=== PATIENT | female | born 1945 | race Caucasian/White ===

== ENCOUNTER 2025-01-31 11:11 | Inpatient (IN) | payer MEDICARE, OTHER ==
[~2025-01-31] VITALS: Ht 152.4 cm; Wt 73.0 kg
[~2025-01-31 11:11] MED LIST: ASCO500C6 PO; ASPI-1169 PO; ATOR40TA PO; BISA10SU61 RC; CARV25TA2 PO; CLON0.1T PO; DIPH25TA62 PO; FLUT16SP16 BNOSTRILS; GABA-532 PO; LITH300T3 PO; LOSA100T31 PO; MULT-647 PO; NA P133E RC
[2025-01-31] MEDS ORDERED: RISP1TAB7 PO (11:30)
[2025-01-31] MEDS ORDERED: LOSA50TA39 PO (11:30)
[2025-01-31] MEDS ORDERED: CLON0.5T4 PO (11:30)
[2025-01-31 11:57] LABS: BASOPHILS # (AUTO) 0.1 K/UL (0.0-0.2); BASOPHILS % (AUTO) 0.6 % (0.0-2.0); EOSINOPHILS # (AUTO) 0.1 K/uL (0.0-0.7); EOSINOPHILS % (AUTO) 1.1 % (0.0-7.0); HEMATOCRIT 41.2 % (31.2-41.9); HEMOGLOBIN 13.4 g/dL (10.9-14.3); LYMPHOCYTES # (AUTO) 1.2 K/uL (0.8-4.8); LYMPHOCYTES % (AUTO) 12.8 % (20.5-51.5); MEAN CORPUSCULAR HEMOGLOBIN 31.1 uug (24.7-32.8); MEAN CORPUSCULAR HGB CONC 32 g/dL (32.3-35.6); MONOCYTES # (AUTO) 0.7 K/uL (0.1-1.30); MONOCYTES % (AUTO) 7.5 % (0.0-11.0); NEUTROPHILS # (AUTO) 7.1 K/uL (1.8-8.9); PLATELET COUNT (AUTO) 167 K/uL (179-408); RED CELL DISTRIBUTION WIDTH 13.7 % (12.3-17.7); WHITE BLOOD COUNT (AUTO) 9.1 K/uL (3.8-11.8)
[2025-01-31 12:08] LABS: *BILIRUBIN,URIN NEGATIVE (NEGATIVE); *BLOOD, URINE NEGATIVE (NEGATIVE); *CLARITY,URINE CLEAR (CLEAR); *COLOR,URINE YELLOW (YELLOW); *KETONES,URINE NEGATIVE (NEGATIVE); *PROTEIN,URINE NEGATIVE (NEGATIVE); *UROBILINOGEN,URINE 0.2 E.U./dl (NORMAL); LEUKOCYTE ESTERASE ,URINE 1+ (NEGATIVE); NITRITE, URINE NEGATIVE (NEGATIVE); UGLUCOSE NEGATIVE (NEGATIVE)
[2025-01-31 12:10] LABS: CALCIUM 8.9 mg/dL (8.5-10.1); CARBON DIOXIDE 21 mmol/L (21-32); CHLORIDE 108 mmol/L (98-107); CREATININE 1.2 mg/dL (0.6-1.3); GLUCOSE 104 mg/dL (74-106); POTASSIUM 4.1 mmol/L (3.5-5.1); SODIUM SERUM 142 mmol/L (136-145); UREA NITROGEN, BLOOD 13 mg/dL (7-18)
[2025-01-31 12:11] LABS: AMMONIA 15 umol/L (11-32)
[2025-01-31 12:14] LABS: DIFFERENTIAL COMMENT 1
[2025-01-31 12:16] LABS: ALANINE AMINOTRANSFERASE 21 U/L (14-59); ALBUMIN 3.6 g/dL (3.4-5.0); ALKALINE PHOSPHATASE 67 U/L (50-136); ASPARTATE AMINOTRANSFERASE 11 U/L (15-37); BILIRUBIN,DIRECT 0.3 mg/dL (0.0-0.2); BILIRUBIN,TOTAL 0.7 mg/dL (0.2-1.0); TOTAL PROTEIN, SERUM 6.1 g/dL (6.4-8.2)
[2025-01-31 12:46] LABS: BACTERIA,URINE FEW /HPF (NONE SEEN); SQUAMOUS EPITHELIAL CELL,UR FEW /HPF (NONE SEEN); WBC,URINE 20-50 /HPF (0-3)
[2025-01-31] MEDS ORDERED: SULFAMETH/TRIMETH 800/160 MG TABLET ONE (13:09)
[2025-01-31] MEDS: SULFAMETH/TRIMETH 800/160 MG TABLET PO ONE (13:21)
[2025-01-31 13:51] LABS: THYROID STIMULATING HORMONE 3.011 mIU/mL (0.358-3.740)
[2025-01-31] MEDS: IV NS 1000 ML 1,000 ML IV ONE (14:00)
[2025-01-31 14:05] LABS: MAGNESIUM 2.3 mg/dL (1.8-2.4)
[2025-01-31] MEDS ORDERED: ASPI81TA31 PO (16:44)
[2025-01-31] MEDS ORDERED: ATOR20TA PO (16:45)
[2025-01-31] MEDS ORDERED: VITA-287 PO (16:47)
[2025-01-31] MEDS ORDERED: ALEN70TA80 PO (16:47)
[2025-01-31] MEDS ORDERED: VITAMIN B12 LIQUID PO (16:50)
[2025-01-31] MEDS ORDERED: MULT-1157 PO (16:50)
[2025-01-31] MEDS ORDERED: ERGO400C PO (16:51)
[2025-01-31] MEDS ORDERED: ZINC220T3 PO (16:51)
[2025-01-31] MEDS ORDERED: MAGN400C PO (16:51)
[2025-01-31] MEDS ORDERED: ACETAMINOPHEN 325 MG TABLET PO PRN (17:15)
[2025-01-31] MEDS ORDERED: ENALAPRILAT DIHYDRATE 1.25 MG/1 ML VIAL IV PRN (17:15)
[2025-01-31] MEDS ORDERED: ALBUTEROL SULFATE 2.5 MG/ 0.5 ML NEBU NEB PRN (17:15)
[2025-01-31] MEDS: risperiDONE 1 MG TABLET PO SCH (17:22)
[2025-01-31] MEDS: CLONAZEPAM 0.5 MG TABLET PO PRN (18:10)
[2025-01-31] MEDS: CEFTRIAXONE 1 G in IV DEXTROSE 5% 50 ML IV SCH (18:15)
[2025-01-31 19:45] VITALS: BP 125/54; TEMP 97.6; O2SAT 96
[2025-01-31] MEDS: ATORVASTATIN 20 MG TABLET PO SCH (20:11)
[2025-01-31] MEDS: CARVEDILOL 12.5 MG TABLET PO SCH (20:12)
[2025-02-01] VITALS (9 sets, daily range): BP systolic 123–157; BP diastolic 57–74; TEMP 97.3–98.9; O2SAT 93–98
[2025-02-01] MEDS: PANTOPRAZOLE SODIUM 40 MG TABLET.DR PO SCH (06:21)
[2025-02-01 06:51] LABS: BASOPHILS % (AUTO) 0.5 % (0.0-2.0); EOSINOPHILS # (AUTO) 0.3 K/uL (0.0-0.7); EOSINOPHILS % (AUTO) 3.3 % (0.0-7.0); HEMATOCRIT 40.3 % (31.2-41.9); LYMPHOCYTES # (AUTO) 1.2 K/uL (0.8-4.8); LYMPHOCYTES % (AUTO) 14.3 % (20.5-51.5); MEAN CORPUSCULAR HEMOGLOBIN 31.3 uug (24.7-32.8); MEAN CORPUSCULAR HGB CONC 32 g/dL (32.3-35.6); MEAN CORPUSCULAR VOLUME 96.5 fL (75.5-95.3); MONOCYTES # (AUTO) 0.7 K/uL (0.1-1.30); MONOCYTES % (AUTO) 7.5 % (0.0-11.0); NEUTROPHILS # (AUTO) 6.5 K/uL (1.8-8.9); NEUTROPHILS % (AUTO) 74.4 % (38.5-71.5); PLATELET COUNT (AUTO) 154 K/uL (179-408); RED BLOOD CELL COUNT(AUTO) 4.17 MIL/uL (3.63-4.92); RED CELL DISTRIBUTION WIDTH 14.2 % (12.3-17.7); WHITE BLOOD COUNT (AUTO) 8.7 K/uL (3.8-11.8)
[2025-02-01 06:55] LABS: ALANINE AMINOTRANSFERASE 22 U/L (14-59); ALBUMIN 3.3 g/dL (3.4-5.0); ALKALINE PHOSPHATASE 68 U/L (50-136); ASPARTATE AMINOTRANSFERASE 8 U/L (15-37); BILIRUBIN,TOTAL 0.9 mg/dL (0.2-1.0); CARBON DIOXIDE 23 mmol/L (21-32); CHLORIDE 111 mmol/L (98-107); CHOLESTEROL 99 mg/dL (<200); CREATININE 1.2 mg/dL (0.6-1.3); GLUCOSE 115 mg/dL (74-106); HDL CHOLESTEROL 41 mg/dL (40-60); MAGNESIUM 2.2 mg/dL (1.8-2.4); PHOSPHOROUS 3.3 mg/dL (2.5-4.9); POTASSIUM 4.3 mmol/L (3.5-5.1); SODIUM SERUM 143 mmol/L (136-145); TOTAL PROTEIN, SERUM 5.8 g/dL (6.4-8.2); TRIGLYCERIDES 117 MG/DL (30-150); UREA NITROGEN, BLOOD 11 mg/dL (7-18)
[2025-02-01 07:00] LABS: DIFFERENTIAL COMMENT 1
[2025-02-01 07:13] LABS: CALCIUM 8.3 mg/dL (8.5-10.1)
[2025-02-01] MEDS: ASCORBIC ACID 500 MG TABLET PO SCH (08:30)
[2025-02-01] MEDS: ASPIRIN 81 MG TAB.CHEW PO SCH (08:30)
[2025-02-01] MEDS: ZINC SULFATE 220 MG CAPSULE PO SCH (08:30)
[2025-02-01] MEDS: MULTIVITAMINS,THERAPEUTIC TABLET PO SCH (08:30)
[2025-02-01] MEDS: MAGNESIUM OXIDE 400 MG TABLET PO SCH (08:30)
[2025-02-01] MEDS: LOSARTAN POTASSIUM 50 MG TABLET PO SCH (08:31)
[2025-02-01] MEDS: VITAMIN B COMPLEX 1 TABLET PO SCH (08:32)
[2025-02-01] MEDS ORDERED: MULTIVITAMINS THERAPEUTIC PO SCH (09:00)
[2025-02-01] MEDS ORDERED: ASPIRIN EC 81 MG TABLET.DR PO SCH (09:00)
[2025-02-01] MEDS ORDERED: ASCORBIC ACID PO SCH (09:00)
[2025-02-01] MEDS ORDERED: Medication Not On Formulary EA (Cholecalciferol (Vitamin D3) (Vitamin D3) 1 CAP) PO SCH (09:00)
[2025-02-01] MEDS ORDERED: Medication Not On Formulary EA (Zinc Sulfate (Zinc) 1 TAB) PO SCH (09:00)
[2025-02-02] VITALS: BP 98/41; TEMP 98; O2SAT 96
[2025-02-02 04:00] VITALS: BP 132/55; TEMP 97.3; O2SAT 97
[2025-02-02 08:25] VITALS: BP 121/44; TEMP 98.2; O2SAT 96
[2025-02-02 12:00] VITALS: BP 117/58; TEMP 96.3; O2SAT 94
[2025-02-02] MEDS: DOCUSATE SODIUM 100 MG CAPSULE PO SCH (14:02)
[2025-02-02] MEDS ORDERED: MAGN400T30 PO (14:13)
[2025-02-02] MEDS ORDERED: ACET325T53 PO (14:13)
[2025-02-02] MEDS ORDERED: PANT40TA49 PO (14:13)
[2025-02-02] MEDS ORDERED: CEPH500C2 PO (14:13)
[2025-02-02] MEDS ORDERED: CARV12.52 PO (14:13)
[2025-02-03] MEDS ORDERED: DOCU100T2 PO (17:03)
[2025-02-04] MEDS ORDERED: ALENDRONATE SODIUM 70 MG TABLET PO SCH (09:00)
== END 2025-02-02 18:35 | DRG 689 ==
LOC: ER 11:11 → TELE3 15:29 → MEDSURG3 02-02 11:16
PROVIDERS: ADMIT Internal Medicine; ATTEND Internal Medicine
DX: N39.0 Urinary tract infection, site not specified (principal); G92.8 Other toxic encephalopathy; D68.59 Other primary thrombophilia; T43.595A Adverse effect of other antipsychotics and neuroleptics, initial encounter; R06.00 Dyspnea, unspecified; Y92.009 Unspecified place in unspecified non-institutional (private) residence as the place of occurrence of the external cause; I11.9 Hypertensive heart disease without heart failure; D69.6 Thrombocytopenia, unspecified; Z74.09 Other reduced mobility; F31.9 Bipolar disorder, unspecified; E78.5 Hyperlipidemia, unspecified; E66.9 Obesity, unspecified; Z68.31 Body mass index [BMI] 31.0-31.9, adult; Z79.899 Other long term (current) drug therapy; Z87.891 Personal history of nicotine dependence; Z95.5 Presence of coronary angioplasty implant and graft; I25.10 Atherosclerotic heart disease of native coronary artery without angina pectoris; I25.2 Old myocardial infarction; D75.89 Other specified diseases of blood and blood-forming organs; M15.9 Polyosteoarthritis, unspecified; F10.11 Alcohol abuse, in remission
CPT/HCPCS: 36415; 70030-TC; 70450; 71045; 83735; 84100; 84443; 84484; 85025; 87086; A4606; A4663; G0378; J0696; J7040

== ENCOUNTER 2025-02-02 18:26 | Inpatient (IN) | payer MEDICARE, OTHER ==
[~2025-02-02] VITALS: Ht 152.4 cm; Wt 72.6 kg
[~2025-02-02 18:26] MED LIST changes: +ACET325T53 PO; +ALEN70TA80 PO; -ASPI-1169 PO; +ASPI81TA31 PO; +ATOR20TA PO; -ATOR40TA PO; -BISA10SU61 RC; +CARV12.52 PO; +CEPH500C2 PO; -CLON0.1T PO; +CLON0.5T4 PO; -DIPH25TA62 PO; +ERGO400C PO; -GABA-532 PO; -LOSA100T31 PO; +LOSA50TA39 PO; +MAGN400C PO; +MAGN400T30 PO; +MULT-1157 PO; -NA P133E RC; +PANT40TA49 PO; +RISP1TAB7 PO; +VITA-287 PO; +VITAMIN B12 LIQUID PO; +ZINC220T3 PO
[2025-02-02] MEDS ORDERED: CLONAZEPAM 0.5 MG TABLET PO PRN (19:30)
[2025-02-02] MEDS ORDERED: ACETAMINOPHEN 325 MG TABLET-SA PATIENTS-PAIN ONLY PO PRN (19:30)
[2025-02-02] MEDS ORDERED: MAG HYDROX/AL HYDROX/SIMETH 30 ML LIQUID UDC PO PRN (19:45)
[2025-02-02] MEDS ORDERED: LORAZEPAM 0.5 MG TABLET PO PRN (19:45)
[2025-02-02] MEDS ORDERED: ACETAMINOPHEN 325 MG TABLET PO PRN (19:45)
[2025-02-02 20:00] VITALS: BP 179/85; TEMP 97.2; O2SAT 95
[2025-02-02] MEDS: LORAZEPAM 0.5 MG TABLET PO PRN (21:02)
[2025-02-02] MEDS: MAGNESIUM OXIDE 400 MG TABLET PO SCH (21:04)
[2025-02-02] MEDS: CARVEDILOL 12.5 MG TABLET PO SCH (21:04)
[2025-02-02] MEDS: DOCUSATE SODIUM 100 MG CAPSULE PO SCH (21:15)
[2025-02-02 22:00] VITALS: BP 148/82
[2025-02-02] MEDS: TEMAZEPAM 7.5 MG CAPSULE PO PRN (22:18)
[2025-02-03] MEDS: PANTOPRAZOLE SODIUM 40 MG TABLET.DR PO SCH (06:44)
[2025-02-03 08:16] VITALS: BP 146/85; TEMP 97.2; O2SAT 95
[2025-02-03] MEDS: ZINC SULFATE 220 MG CAPSULE PO SCH (08:38)
[2025-02-03] MEDS: ASCORBIC ACID 500 MG TABLET PO SCH (08:39)
[2025-02-03] MEDS: ASPIRIN 81 MG TAB.CHEW PO SCH (08:39)
[2025-02-03] MEDS: MULTIVITAMINS,THERAPEUTIC TABLET PO SCH (08:40)
[2025-02-03] MEDS: LOSARTAN POTASSIUM 50 MG TABLET PO SCH (08:40)
[2025-02-03] MEDS: VITAMIN B COMPLEX 1 TABLET PO SCH (08:45)
[2025-02-03] MEDS ORDERED: FLUTICASONE PROP NASAL SPRAY 16 GM BOTTLE NS PRN (09:00)
[2025-02-03] MEDS: MAGNESIUM HYDROXIDE 30 ML LIQUID UDC PO PRN (12:13)
[2025-02-03] MEDS: LORAZEPAM 0.5 MG TABLET PO PRN (13:51)
[2025-02-03 16:39] VITALS: BP 109/64; TEMP 98; O2SAT 100
[2025-02-03] MEDS ORDERED: DOCU100T2 PO (17:03)
[2025-02-03 20:00] VITALS: BP 171/78; TEMP 98.4; O2SAT 96
[2025-02-04] MEDS ORDERED: ALENDRONATE SODIUM 70 MG TABLET PO SCH (07:00)
[2025-02-04 07:41] LABS: PLATELET COUNT (AUTO) 155 K/uL (179-408); RED BLOOD CELL COUNT(AUTO) 4.33 MIL/uL (3.63-4.92); RED CELL DISTRIBUTION WIDTH 13.9 % (12.3-17.7); WHITE BLOOD COUNT (AUTO) 7.5 K/uL (3.8-11.8)
[2025-02-04 07:58] LABS: ASPARTATE AMINOTRANSFERASE 13 U/L (15-37); CREATININE 1.0 mg/dL (0.6-1.3); SODIUM SERUM 145 mmol/L (136-145); TOTAL PROTEIN, SERUM 6.0 g/dL (6.4-8.2); UREA NITROGEN, BLOOD 6 mg/dL (7-18)
[2025-02-04 08:20] VITALS: BP 165/71; TEMP 98; O2SAT 98
[2025-02-04] MEDS: CHOLECALCIFEROL 400 UNITS TABLET PO SCH (08:24)
[2025-02-04] MEDS: BENZTROPINE MESYLATE 0.5 MG TABLET PO SCH (14:15)
[2025-02-04 16:48] VITALS: BP 153/62; TEMP 98.4; O2SAT 96
[2025-02-04 20:28] VITALS: BP 156/66; TEMP 98.1; O2SAT 98
[2025-02-04] MEDS: LOSARTAN POTASSIUM 50 MG TABLET PO SCH (22:17)
[2025-02-05 08:59] VITALS: BP 155/61; TEMP 98; O2SAT 98
[2025-02-05 16:34] VITALS: BP 130/71; TEMP 98.4; O2SAT 96
[2025-02-06 08:30] VITALS: BP 128/74; TEMP 98.2; O2SAT 97
[2025-02-06 16:55] VITALS: BP 128/74; TEMP 98.2; O2SAT 97
[2025-02-06 20:00] VITALS: BP 139/62; TEMP 98.2; O2SAT 95
[2025-02-06] MEDS: TEMAZEPAM 7.5 MG CAPSULE PO PRN (23:25)
[2025-02-07 08:05] VITALS: BP 136/70; TEMP 98.2; O2SAT 94
[2025-02-07] MEDS: ENSURE ENLIVE (VAN) 240 ML LIQUID PO SCH (09:32)
[2025-02-07] MEDS: SERTRALINE HCL 50 MG TABLET PO SCH (16:19)
[2025-02-07 20:00] VITALS: BP 103/53; TEMP 97.8; O2SAT 94
[2025-02-08 07:27] LABS: PLATELET COUNT (AUTO) 154 K/uL (179-408); RED BLOOD CELL COUNT(AUTO) 4.13 MIL/uL (3.63-4.92); RED CELL DISTRIBUTION WIDTH 14.0 % (12.3-17.7); WHITE BLOOD COUNT (AUTO) 7.4 K/uL (3.8-11.8)
[2025-02-08 07:35] LABS: CREATININE 0.8 mg/dL (0.6-1.3); SODIUM SERUM 144 mmol/L (136-145); UREA NITROGEN, BLOOD 13 mg/dL (7-18)
[2025-02-08 08:14] VITALS: BP 136/61; TEMP 97.7; O2SAT 98
[2025-02-08] MEDS: SERTRALINE HCL 50 MG TABLET PO SCH (16:33)
[2025-02-08 17:41] VITALS: BP 128/63; TEMP 97.7; O2SAT 98
[2025-02-08 20:00] VITALS: BP 129/49; TEMP 97.9; O2SAT 94
[2025-02-09 08:01] VITALS: BP 151/73; TEMP 98.1; O2SAT 96
[2025-02-09 16:23] VITALS: BP 146/41; TEMP 98.6; O2SAT 95
[2025-02-09 20:00] VITALS: BP 160/74; TEMP 97.8; O2SAT 94
[2025-02-10 08:00] VITALS: BP 91/69; TEMP 98.1; O2SAT 96
[2025-02-10 20:17] VITALS: BP 132/66; TEMP 98.1; O2SAT 95
[2025-02-11 08:22] VITALS: BP 145/71; TEMP 98; O2SAT 98
[2025-02-11 16:30] VITALS: BP 96/71; TEMP 98.1; O2SAT 95
[2025-02-11 20:00] VITALS: BP 149/73; TEMP 98.1; O2SAT 96
[2025-02-12 07:19] LABS: PLATELET COUNT (AUTO) 141 K/uL (179-408); RED BLOOD CELL COUNT(AUTO) 4.45 MIL/uL (3.63-4.92); RED CELL DISTRIBUTION WIDTH 13.9 % (12.3-17.7); WHITE BLOOD COUNT (AUTO) 7.3 K/uL (3.8-11.8)
[2025-02-12 07:30] LABS: CREATININE 1.2 mg/dL (0.6-1.3); SODIUM SERUM 140 mmol/L (136-145); UREA NITROGEN, BLOOD 15 mg/dL (7-18)
[2025-02-12 08:42] VITALS: BP 142/70; TEMP 98; O2SAT 98
[2025-02-12 16:52] VITALS: BP 145/71; TEMP 98; O2SAT 98
[2025-02-12 19:55] VITALS: BP 150/74; TEMP 98.2; O2SAT 97
[2025-02-13] MEDS: ASCORBIC ACID 500 MG TABLET PO SCH (08:36)
[2025-02-13 08:55] VITALS: BP 150/80; TEMP 97.8; O2SAT 96
[2025-02-13 09:30] VITALS: BP 138/74; TEMP 98; O2SAT 98
== END 2025-02-13 11:30 | DRG 885 ==
LOC: GPS 18:26
PROVIDERS: ADMIT Psychiatry & Neurology Psychosomatic Medicine; ATTEND Nurse Practitioner Acute Care
DX: F31.9 Bipolar disorder, unspecified (principal); G92.8 Other toxic encephalopathy; N39.0 Urinary tract infection, site not specified; E44.1 Mild protein-calorie malnutrition; D68.59 Other primary thrombophilia; Z79.82 Long term (current) use of aspirin; T43.595D Adverse effect of other antipsychotics and neuroleptics, subsequent encounter; F10.10 Alcohol abuse, uncomplicated; I25.2 Old myocardial infarction; Z95.5 Presence of coronary angioplasty implant and graft; E66.9 Obesity, unspecified; Z68.31 Body mass index [BMI] 31.0-31.9, adult; Z87.891 Personal history of nicotine dependence; M15.9 Polyosteoarthritis, unspecified; I25.10 Atherosclerotic heart disease of native coronary artery without angina pectoris; I10 Essential (primary) hypertension; E88.09 Other disorders of plasma-protein metabolism, not elsewhere classified; E78.5 Hyperlipidemia, unspecified; D69.6 Thrombocytopenia, unspecified; D75.89 Other specified diseases of blood and blood-forming organs; Z74.09 Other reduced mobility
CPT/HCPCS: 36415; 83735; 84100; 85025; 85610; J3535